=== PATIENT | female | born 1990 | race Caucasian/White ===

== ENCOUNTER 2024-05-16 17:00 | Emergency (ER) | payer MEDICAID ==
[~2024-05-16] VITALS: Ht 154.9 cm; Wt 56.8 kg
[~2024-05-16 17:00] MED LIST: ESOM20CA PO; NO HOME MEDS
[2024-05-16 17:02] VITALS: BP 115/68; PULSE 61; RESP 16; O2SAT 99
[2024-05-16 18:06] LABS: BILIRUBIN,URINE NEGATIVE (Neg); CLARITY,URINE CLOUDY (Clear); COLOR,URINE YELLOW (Yellow); GLUCOSE, URINE NEGATIVE (Neg); KETONES,URINE NEGATIVE (Neg); LEUKOCYTE ESTERASE ,URINE SMALL (Neg); NITRITES, URINE NEGATIVE (Neg); OCCULT BLOOD,URINE LARGE (Neg); PH,URINE 6.5 (4.8-8.0); PROTEIN,URINE 30 mg/dl (Neg)
[2024-05-16] MEDS ORDERED: METR-159 PO (18:15)
[2024-05-16] MEDS ORDERED: DOXY-460 PO (18:15)
[2024-05-16 18:32] LABS: UA COLLECTION TYPE CLN CATCH MIDSTREAM
[2024-05-16 18:38] LABS: MUCUS STRANDS FEW /LPF (Neg); RBC,URINE TNTC /HPF (0-2); SQUAMOUS EPITHELIAL CELL,UR MANY /LPF (FEW); WBC,URINE 50-100 /HPF (0-4)
[2024-05-16 18:41] LABS: BACTERIA,URINE 1+ /HPF (Neg)
[2024-05-16] MEDS: CefTRIAXone 1000mg IM Kit (w/lidocaine diluent) IM ONE (18:43)
[2024-05-16 19:14] VITALS: TEMP 98.1
[2024-05-20 05:20] LABS: CHLAMYDIA TRACHOMATIS, NAA Negative (Negative)
== END 2024-05-16 19:16 | disposition home or self-care (01) ==
LOC: ER 17:01
DX: N76.0 Acute vaginitis (principal); Z79.899 Other long term (current) drug therapy; Z79.2 Long term (current) use of antibiotics; Z56.0 Unemployment, unspecified
CPT/HCPCS: 36415; 81001; 87491; 87591; 96372; 99283; J0696